=== PATIENT | male | born 1995 | race Caucasian/White ===

== ENCOUNTER 2020-10-31 14:19 | Emergency (ER) | payer MEDICAID ==
--- NOTE | 2020-10-31 14:58 | EDM.PDOCBH ---
ED HPI GENERAL MEDICAL PROBLEM - General Chief Complaint: Drug or Alcohol Abuse Stated Complaint: NEED MEDS FOR HEROINE ADDICTION Time Seen by Provider: 10/31/20 14:30 Source of Information: Reports: Patient, Family History Limitations: Reports: No Limitations - History of Present Illness INITIAL COMMENTS - FREE TEXT/NARRATIVE: The patient presents with nausea and vomiting and stomach cramps. He has been on Suboxone for over a year. He just moved here 10 days ago and he ran out of suboxone 4 days ago. He is having some withdrawal symptoms. He found a Suboxone clinic in [place]. They have a bad tire and are seeing where else they could go. Onset: Gradual Duration: Day(s): Location: Reports: Abdomen Quality: Reports: Ache Severity: Mild Improves with: Reports: None Worsens with: Reports: None Associated Symptoms: Reports: Fever/Chills, Nausea/Vomiting. Denies: Chest Pain, Cough, Headaches, Shortness of Breath Bilateral Posterior Leg Pain Score (Numeric/FACES): 7 - Related Data Allergies Allergy/AdvReac Type Severity Reaction Status Date / Time No Known Allergies Allergy Verified 10/31/20 14:35 Home Meds: Home Meds Hydrocodone/Acetaminophen [Hydrocodone-Acetamin 5-325 mg] 1 - 2 each PO Q6HR PRN #15 tablet 10/31/20 [Rx] Past Medical History - Past Health History Medical/Surgical History: Denies Medical/Surgical History Psychiatric History: Reports: Addiction - Past Surgical History GI Surgical History: Reports: Appendectomy Social & Family History - Family History Family Medical History: No Pertinent Family History - Tobacco Use Tobacco Use Status *Q: Current Every Day Tobacco User Years of Tobacco use: 10 Packs/Tins Daily: 1 Second Hand Smoke Exposure: No - Caffeine Use Caffeine Use: Reports: Soda - Recreational Drug Use Recreational Drug Use: Yes Drug Use in Last 12 Months: No Recreational Drug Type: Reports: Heroin, Methamphetamine ED ROS GENERAL - Review of Systems Review Of Systems: See Below Constitutional: Reports: Chills. Denies: Fever HEENT: Reports: No Symptoms Respiratory: Reports: No Symptoms Cardiovascular: Reports: No Symptoms Endocrine: Reports: No Symptoms GI/Abdominal: Reports: Abdominal Pain, Nausea. Denies: Vomiting : Reports: No Symptoms Musculoskeletal: Reports: No Symptoms Skin: Reports: No Symptoms ED EXAM, BEHAVIORAL HEALTH - Physical Exam Exam: See Below Exam Limited By: No Limitations General Appearance: Alert, No Apparent Distress Ears: Normal External Exam Nose: Normal Inspection Head: Atraumatic, Normocephalic Neck: Normal Inspection Respiratory/Chest: No Respiratory Distress, Lungs Clear, Normal Breath Sounds Cardiovascular: Regular Rate, Rhythm, No Edema, No Murmur GI/Abdominal: Soft, Non-Tender, No Organomegaly, No Mass Back Exam: Normal Inspection Extremities: Normal Inspection COURSE, BEHAVIORAL HEALTH COMP - Course Vital Signs: Last Vital Signs Temp 96.5 F L 10/31/20 14:29 Pulse 81 10/31/20 14:29 Resp BP 125/72 10/31/20 14:29 Pulse Ox 99 10/31/20 14:29 Re-Assessment/Re-Exam: I checked with Ben and she said they refer patients to [facility] in [facility]. 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 I will give him that option also. Departure - Departure Time of Disposition: 15:00 Disposition: Home, Self-Care 01 Condition: Good Clinical Impression: Opioid withdrawal - Discharge Information *PRESCRIPTION DRUG MONITORING PROGRAM REVIEWED*: Not Applicable *COPY OF PRESCRIPTION DRUG MONITORING REPORT IN PATIENT REMY: Not Applicable Prescriptions: Hydrocodone/Acetaminophen [Hydrocodone-Acetamin 5-325 mg] 1 - 2 each PO Q6HR PRN #15 tablet PRN Reason: Pain Referrals: PCP,Not In Area [Primary Care Provider] - Franklyn Hernandez, DO [Physician] - Additional Instructions: Ronald other options for Suboxone is Dr Hernandez at [facility] in [place]. I am not sure if he still does it but call and check on Monday. His number is . Another option is [facility] in [place], [place]. Their number is . Please return if you are worse. Sepsis Event Note (ED) - Evaluation Sepsis Screening Result: No Definite Risk - Focused Exam Vital Signs: Vital Signs Temp Pulse BP Pulse Ox 10/31/20 14:29 96.5 F L 81 125/72 99
== END 2020-10-31 15:22 | disposition home or self-care (01) ==
LOC: JD.ED 14:19
DX: F11.23 Opioid dependence with withdrawal (principal); Z72.0 Tobacco use
CPT/HCPCS: 99283; 99284

== ENCOUNTER 2022-08-03 17:18 | Emergency (ER) | payer SELFPAY | END 2022-08-03 22:57 | disposition home or self-care (01) | LOC: JD.ED 17:18 | DX: M25.512 Pain in left shoulder (principal); Z90.49 Acquired absence of other specified parts of digestive tract | CPT/HCPCS: 76870; 76870-26; 81003; 93975; 99283; 99284 ==

== ENCOUNTER 2022-09-18 04:07 | Emergency (ER) | payer SELFPAY ==
[2022-09-18 05:18] LABS: CORONAVIRUS COVID-19 NAA POSITIVE (NEGATIVE)
== END 2022-09-18 05:32 | disposition home or self-care (01) ==
LOC: JD.ED 04:07
DX: U07.1 COVID-19 (principal); Z72.0 Tobacco use
CPT/HCPCS: 0241U; 99283

== ENCOUNTER 2023-09-15 21:12 | Emergency (ER) | payer SELFPAY ==
[2023-09-15] MEDS ORDERED: Fluorescein 1 MG Ophth Strip EYERT ONE (21:32)
[2023-09-15] MEDS ORDERED: Proparacaine 0.5% Ophth Soln 15 ML Bottle EYERT ONE (21:33)
[2023-09-15] MEDS ORDERED: Ketorolac 0.5% Ophth Soln 5 ML Bottle EYERT ONE (21:46)
[2023-09-15] MEDS ORDERED: Erythromycin Base 0.5% Ophth Oint 1 GM Tube EYERT ONE (21:47)
== END 2023-09-15 22:27 | disposition home or self-care (01) ==
LOC: JD.ED 21:12
DX: S05.01XA Injury of conjunctiva and corneal abrasion without foreign body, right eye, initial encounter (principal); T15.91XA Foreign body on external eye, part unspecified, right eye, initial encounter; Z90.49 Acquired absence of other specified parts of digestive tract; Z79.899 Other long term (current) drug therapy; F17.210 Nicotine dependence, cigarettes, uncomplicated; W31.1XXA Contact with metalworking machines, initial encounter
CPT/HCPCS: 65222; 99283; A9270-GY; J3490